=== PATIENT | female | born 1965 | race Caucasian/White ===

== ENCOUNTER 2020-08-07 11:18 | Outpatient (REF) | payer OTHER, SELFPAY | END 2020-08-07 11:19 | disposition home or self-care (01) | LOC: HO.LAB 11:18 | PROVIDERS: PCP Internal Medicine Geriatric Medicine; Visit Provider Internal Medicine | DX: Z20.828 Contact with and (suspected) exposure to other viral communicable diseases (principal) | CPT/HCPCS: 87635 ==

== ENCOUNTER 2020-10-18 14:31 | Outpatient (REF) | payer OTHER, MEDICAID, SELFPAY ==
--- NOTE | 2020-10-18 14:36 | MM_ITS ---
EXAMINATION: MM SCREENING DIGITAL BREAST TOMOSYNTHESIS, BILATERAL CLINICAL INFORMATION: Screening. Asymptomatic. The lifetime risk of breast cancer based on the Tyrer-Cuzick Model is 7%. COMPARISON: Mammography: 08/20/2019, 08/03/2018, 01/28/2018, 07/24/2017 TECHNIQUE: Digital mammography is performed in craniocaudal and mediolateral oblique views along with computer-aided detection (CAD). Digital breast tomosynthesis is performed in implant-displaced craniocaudal and implant-displaced mediolateral oblique views along with computer-aided detection (CAD). Synthesized 2D images are generated from the tomosynthesis. FINDINGS: The breasts are heterogeneously dense, which may obscure small masses (ACR BI-RADS breast composition Category c). There are bilateral implants. The implant contours are smooth. There are scattered calcifications predominantly outer breasts, slightly greater on left, similar to prior exams. No significant change calcifications. Again, there is fibrocystic parenchymal pattern with interval regression of oval masses anterior upper outer right breast since 2018. The oval retroareolar asymmetry on the left is stable. There is no interval new dominant mass or architectural abnormality. No significant changes. MM/MM tomosynthesis screen imp BI IMPRESSION: 1. Fibrocystic changes, decreased on right and stable on left. 2. Calcifications similar to prior studies. 3. No significant changes. ASSESSMENT: BI-RADS 2: Benign RECOMMENDATION: Routine annual mammography screening. This patient's information was entered into a reminder system with a target due date for their next mammogram.
== END 2020-10-18 14:32 | disposition home or self-care (01) ==
LOC: HO.MAMMO 14:31
PROVIDERS: PCP Internal Medicine Geriatric Medicine; Visit Provider Internal Medicine Geriatric Medicine
DX: Z12.31 Encounter for screening mammogram for malignant neoplasm of breast (principal)
CPT/HCPCS: 77063; 77067

== ENCOUNTER 2020-12-15 11:24 | Outpatient (REF) | payer OTHER, SELFPAY | END 2020-12-15 11:25 | disposition home or self-care (01) | LOC: HO.LAB 11:24 | PROVIDERS: Visit Provider Internal Medicine | DX: Z20.822 Contact with and (suspected) exposure to COVID-19 (principal) | CPT/HCPCS: 36415; C9803; U0003; U0005 ==

== ENCOUNTER 2021-06-16 10:11 | Emergency (ER) | payer OTHER, SELFPAY ==
--- NOTE | ~2021-06-16 | CT_ITS ---
EXAMINATION: CT HEAD WITHOUT CONTRAST CLINICAL INFORMATION: Dizziness COMPARISON: None TECHNIQUE: Contiguous axial imaging was performed from the skull base to vertex without intravenous administration of contrast. This CT examination was performed using dose optimization techniques as appropriate, variously including the following: *Automated exposure control *Adjustment of mA and/or kV according to patient size (this includes techniques or standardized protocols for targeted exams where dose is matched to indication/reason for exam; i.e. extremities or head) *Use of iterative reconstruction technique DLP: 631 mGy-cm FINDINGS: There is no evidence of acute intracranial hemorrhage or territorial infarction. No abnormal mass effect or midline shift is seen. Ovalle to white matter differentiation is well preserved. No extra-axial fluid collections are identified. The ventricles are normal in size. There is no abnormal attenuation within the brain parenchyma. The osseous structures and soft tissues are normal. The mastoid air cells and visualized portions of the paranasal sinuses are well aerated. CT/CT head/brain wo con IMPRESSION: No acute intracranial pathology.
[2021-06-16 10:19] VITALS: BP 137/75; PULSE 64; RESP 16; TEMP 36.7; O2SAT 98; BMI 28.3
--- NOTE | 2021-06-16 11:02 | ED_ITS ---
HPI - General Adult General Chief complaint: Dizziness Stated complaint: dizziness Time Seen by Provider: 06/16/21 11:02 Source: patient Mode of arrival: ambulatory Limitations: language barrier History of Present Illness HPI narrative: 56-year-old female with no significant medical history presents for 2 weeks of positional vertigo. Patient states when she flips over in bed, the room is spinning. Two weeks ago patient had a upper respiratory infection with a little cough some right ear pain and no sore throat. The upper respiratory infection went away but she has had worsening dizziness when she turns her head. She currently has a little bit of pain in her right ear, no fevers, no cough, no runny nose. No neck pain, no nausea or vomiting. This has never happened to her before. She denies chest pain, headache, neck pain, gait disturbance, blurry vision. Onset (ago): week(s) (2) Pain Consistency: intermittent Associated symptoms: denies other symptoms Treatments prior to arrival: none Related Data Previous Rx's Medication Instructions Recorded cefdinir 300 mg capsule 300 mg PO BID 7 Days #14 cap 06/16/21 meclizine 25 mg tablet 25 mg PO TID PRN #30 tab 06/16/21 Allergies Allergy/AdvReac Type Severity Reaction Status Date / Time Penicillins [PENICILLINS] Allergy Intermediate RASH Verified 06/16/21 10:19 penicillin V Allergy Unknown rash Verified 06/16/21 10:19 Dust Allergy Unknown rash Uncoded 11/27/18 00:00 Dust Mite Mixed Allergen Ext Allergy Unknown Unknown Uncoded 06/16/21 10:19 Review of Systems Constitutional: Constitutional: Denies fatigue, Denies fever(s), Denies headache(s), Denies malaise and Denies weakness Eyes: Eyes: Denies blurry vision, Denies change in vision and Denies diplopia ENT: Reports vertigo, Reports otalgia, Denies headache(s), Denies nasal congestion, Denies nasal discharge, Denies neck pain, Denies disequilibrium, Denies post nasal drip, Denies tinnitus, Denies sinus pain and Denies sore throat Cardiovascular: Cardiovascular: Denies chest pain, Denies syncope, Denies leg edema and Denies dyspnea Respiratory: Respiratory: Denies chest congestion, Denies cough and Denies dyspnea Gastrointestinal: Gastrointestinal: Denies abdominal pain, Denies coffee ground emesis, Denies constipation, Denies diarrhea, Denies nausea and Denies vomiting Genitourinary: Genitourinary: Reports no additional female genitourinary complaints Comments: Postmenopausal Musculoskeletal: Musculoskeletal: Denies abnormal gait, Denies back pain, Denies neck pain, Denies numbness and Denies tingling Integumentary/Breasts: Skin/Breast: Denies erythema and Denies rash Neurologic: Denies Abnormal speech present, Denies abnormal gait, Denies confusion, Reports vertigo, Denies syncope, Denies headache(s), Denies focal weakness, Denies numbness, Denies radicular pain, Denies Sensory deficit (Neuro), Denies tingling, Denies disequilibrium and Denies weakness Psychiatric: Psychiatric: Denies confusion Endocrine: Endocrine: Denies fatigue PMFSH Past Medical History Surgical History Hx of abdominoplasty Hx of breast augmentation Hx of section Hx of colonoscopy (12/01/18) Hx of endoscopy (~12/01/18) Family History Family History (Updated 08/08/20 @ 10:06 by ANATOLY Erickson) Father HTN (hypertension) Mother No problems noted. Brother No problems noted. Social History Social History Alcohol intake: never Patient Tobacco Use Status: Never used Tobacco Use of substances other than those prescribed or required for medical reasons: No Advance Directives: Yes Advance Directives Information Provided: Yes Advance Directives on File: No Patient : No Physical Exam Vital Signs: Vital Signs: Last Vital Signs Temp 97.6 F 06/16/21 13:08 Pulse 51 06/16/21 13:08 Resp 16 06/16/21 13:08 BP 136/73 06/16/21 13:08 Pulse Ox 98 06/16/21 11:55 Body Mass Index 28.3 Const: General: comfortable, no acute distress, well developed, alert, awake and well groomed; No confusion Nutritional Appearance: well nourished Orientation/consciousness: patient oriented x3 and No confusion Limitations: language barrier HENMT: Head: Yes normal to inspection, Yes normocephalic and Yes atraumatic Ears: hearing grossly normal bilaterally, TM normal on the left and TM abnormal wth effusion serous on the right and with fluid behind the TM on the right; Negative for not bulging, not erythematous and not perforated General nose exam: Normal external nose present Face and sinus: Yes normal facial exam and Yes sinuses nontender Mouth: Normal oral and palatal mucosa present Throat: Yes posterior oropharynx normal and Yes uvula midline Eyes: Pupils: Equal, round and reactive pupils present EOM: EOMs intact bilaterally and No Nystagmus present Neck: Neck: Yes normal visual inspection, Yes full ROM, Yes trachea midline and Yes supple Resp: Effort & Inspection: normal respiratory effort and able to speak in complete sentences Auscultation: clear to auscultation bilaterally, no crackles, no rales, no rhonchi and no wheezes Cardio: Rate: regular rate Rhythm: regular rhythm Heart sounds: S1 normal heart sound present and S2 normal heart sound present GI: Inspection: Yes normal to inspection Palpation (GI): Soft to palpation, not firm, nontender, no guarding and not rigid Skin: General skin exam: no rashes or lesions noted Neuro: Other: Sudden turning of her head her sitting up in bed elicit vertigo General: patient oriented x3, gait normal, tone normal, moves all extremities and No confusion Cranial nerves: Yes CN's II-XII intact bilaterally, Yes Facial sensation intact/muscles of mastication intact, Yes Equal, round and reactive pupils present, Yes Normal accommodation reflex present, Yes Bilaterally intact EOM present, Yes Normal facial strength present, Yes Ability to bilaterally rotate head present, Yes Ability to bilaterally elevate shoulders present and No Nystagmus present Cognition (Neuro): normal cognition Speech: No Abnormal speech present Gait exam (Neuro): Normal gait present and not ataxic Motor exam (neuro): 5/5 motor strength present throughout and Pronator motor function not present Sensory Exam: No Sensory deficit (Neuro) Deep tendon reflexes (DTR's): Right brachioradialis reflex intensity grade: 1+, Left brachioradialis reflex intensity grade: 1+, Right patellar reflex intensity grade: 1+ and Left patellar reflex intensity grade: 1+ Coordination: [id number] test normal, [id number]-[id number] test normal, tandem gait normal and does not sway with eyes open Romberg Test: Negative Pupils: Normal pupillary reactivity/response: bilateral Extrem: General: Yes normal to inspection and Yes full ROM Psych: Appearance: well kempt Mental Status: mental status grossly normal Speech and movement: Normal speech and movement present Affect: normal affect Attitude: cooperative Course Course Course Narrative: 56-year-old female with 2 weeks of dizziness that started when she had an upper respiratory infection, with some mild right ear pain pre sently. Patient feels the room is spinning when she sits up in bed when she turns her head. The symptoms are intermittent and are positional. No fevers, no neck pain, no gait disturbance, no red flag symptoms Patient has a benign neurological exam, with no nystagmus. Can elicit symptoms of vertigo when patient turns her head. Right TM has effusion, no redness or bulging. Will get head CT, give meclizine and re-evaluate. Head CT shows no acute intracranial abnormality. Patient is feeling better after meclizine, her dizziness is much better. Will treat effusion in patient's ear with antibiotics as this looks like it may become a purulent effusion. Advised patient to call her primary care provider for follow-up appointment in the next week, advised patient that she should return to emergency room if she got headache, visual changes, neck pain, gait disturbance, or vomiting. Medical Decision Making ECG Data Interpretation: Sinus at a rate of 52, incomplete right bundle branch, no ST elevations or depressions, W[place] 174, QRS 104, QTC 412, normal axis. Discharge Plan Discharge Clinical Impression: Benign paroxysmal positional vertigo Qualifiers: Laterality: right Qualified Code(s): H81.11 - Benign paroxysmal vertigo, right ear Patient Disposition: Home, Self-Care Instructions: Benign Paroxysmal Positional Vertigo (ED) Additional Instructions: Please get the prescriptions I sent to your pharmacy, 1 is an antibiotic, 1 is for dizziness. Please take these as prescribed. Please call your primary care provider for follow-up appointment. Please return to the emergency room if your dizziness gets much worse, you have vomiting, headaches, neck pain, visual changes, changes in the way you walk, or any other new or concerning symptoms. Obtenga las recetas que envi? a jain farmacia, 1 es un antibi?alexa, 1 es para mareos. T?melos seg?n lo prescrito. Llame a jain proveedor de atenci?n primaria para trish charlette de seguimiento. Regrese a la joanna de emergencias si jain mareo empeora mucho, tiene v?mitos, justin de duc, dolor de wilmer, cambios visuales, cambios en la forma de caminar o cualquier otro s?ntoma nuevo o preocupante. Prescriptions: New cefdinir 300 mg capsule 300 mg PO BID 7 Days Qty: 14 RF: 0 meclizine 25 mg tablet 25 mg PO TID PRN (Reason: dizziness) Qty: 30 RF: 0 Print Language: Upper Sorbian
[2021-06-16] MEDS: Meclizine HCl 25 MG TABLET 50 MG PO (11:52)
[2021-06-16 11:55] VITALS: BP 136/72; PULSE 54; RESP 16; O2SAT 98
--- NOTE | 2021-06-16 12:50 | ECG_ITS ---
Test Reason : dizzy Blood Pressure : / mmHG Vent. Rate : 052 BPM Atrial Rate : 052 BPM P-R Int : 174 ms QRS Dur : 104 ms QT Int : 444 ms P-R-T Axes : 064 -29 048 degrees QTc Int : 412 ms Sinus bradycardia Incomplete right bundle branch block Nonspecific T wave abnormality Abnormal ECG No previous ECGs available Referred By: Migdalia Mendenhall Electronically Signed By:NATALIE VALVERDE
[2021-06-16 13:08] VITALS: BP 136/73; PULSE 51; RESP 16; TEMP 36.4
== END 2021-06-16 14:26 | disposition home or self-care (01) ==
PROVIDERS: Emergency Provider Emergency Medicine; PCP Internal Medicine Geriatric Medicine
DX: H81.11 Benign paroxysmal vertigo, right ear (principal)
CPT/HCPCS: 70450; 93005; 99284

== ENCOUNTER 2021-07-07 12:02 | Emergency (ER) | payer OTHER, SELFPAY ==
[2021-07-07 12:17] VITALS: BP 133/77; PULSE 70; RESP 18; O2SAT 99; BMI 25.7
[2021-07-07] MEDS: levoFLOXacin 500 MG TABLET PO (13:10)
[2021-07-07] MEDS: Meclizine HCl 25 MG TABLET PO (13:10)
--- NOTE | 2021-07-07 13:32 | ED_ITS ---
HPI - Ear Problem General Chief complaint: Ear Problems Stated complaint: EAR ISSUE DIZZY Time Seen by Provider: 07/07/21 12:48 Source: patient Mode of arrival: ambulatory History of Present Illness HPI Narrative: 56-year-old female presenting to the ED complaining of right ear blockage and intermittent positional dizziness described as feeling off balance x a few weeks. Admits was seen and treated in the ED for similar symptoms on 06/16, had labs, CT that were unremarkable. Reports overall feels improved from prior visit however symptoms persistent. Reports mild headache. Denies vision change/loss, CP/SOB, weakness, numbness/tingling, abdominal pain, nausea/vomiting, drainage from the ear. Reports finishing previously prescribed antibiotics. Was unable to follow-up with ENT Patient denies dizziness or headache at present. MD Complaint: decreased hearing Related Data Previous Rx's Medication Instructions Recorded cefdinir 300 mg capsule 300 mg PO BID 7 Days #14 cap 06/16/21 meclizine 25 mg tablet 25 mg PO TID PRN #30 tab 06/16/21 levofloxacin 500 mg tablet 500 mg PO Q24H #6 tab 07/07/21 meclizine 25 mg tablet 25 mg PO TID PRN #14 tab 07/07/21 Allergies Allergy/AdvReac Type Severity Reaction Status Date / Time Penicillins [PENICILLINS] Allergy Intermediate RASH Verified 06/16/21 10:19 penicillin V Allergy Unknown rash Verified 06/16/21 10:19 Dust Allergy Unknown rash Uncoded 11/27/18 00:00 Dust Mite Mixed Allergen Ext Allergy Unknown Unknown Uncoded 06/16/21 10:19 Review of Systems Review of Systems: Constitutional: No Fever, No Night Sweats, No Fatigue, No Malaise ENT/Mouth: +Hearing loss, + Ear Pain, No Nasal Congestion, No Hoarseness, No sore throat, No Rhinorrhea, No Swallowing Difficulty Eyes: No Eye Pain, No Swelling, No Redness, No Vision Changes Cardiovascular: No Chest Pain, No SOB, No Edema, No Palpitations Respiratory: No Cough, No Sputum, No Wheezing, No Smoke Exposure, No Dyspnea Gastrointestinal: No Nausea, No Vomiting, No Diarrhea, No Constipation, No Abdominal pain Genitourinary: No Dysuria, No Urinary Frequency, No Hematuria, No Flank Pain Musculoskeletal: No joint pain, No Myalgias, No Joint Swelling Skin: No Skin Lesions, No rash Neuro: No Weakness, No Numbness, No Paresthesias, No Loss of Consciousness, + Dizziness, + Headache Yes all other systems are reviewed and are negative Neurologic: Denies Abnormal speech present [facility] Past Medical History Attestation statement: The following information was validated with the patient. Surgical History Hx of abdominoplasty Hx of breast augmentation Hx of section Hx of colonoscopy (12/01/18) Hx of endoscopy (~12/01/18) Family History Family History (Updated 08/08/20 @ 10:06 by Tracey Angela [facility]) Father HTN (hypertension) Mother No problems noted. Brother No problems noted. Social History Social History Alcohol intake: never Patient Tobacco Use Status: Never used Tobacco Advance Directives: Yes Advance Directives Information Provided: Yes Advance Directives on File: No Patient : No Physical Exam Vital Signs: Vital Signs: Last Vital Signs Pulse 70 07/07/21 12:17 Resp 18 07/07/21 12:17 BP 133/77 07/07/21 12:17 Pulse Ox 99 07/07/21 12:17 Body Mass Index 25.7 Const: General: cooperative, healthy appearing and no acute distress Orientation/consciousness: patient oriented x3 Limitations: no limitations HENMT: Head: Yes normal to inspection Ears: hearing grossly normal bilaterally, external ears normal, mastoids normal and TM abnormal wth effusion and with fluid behind the TM on the right; Negative for not bulging, not erythematous and not perforated General nose exam: Normal external nose present Face and sinus: Yes normal facial exam Mouth: Normal oral and palatal mucosa present Throat: Yes posterior oropharynx normal, Yes tonsils normal, Yes uvula midline and No peritonsillar mass Eyes: General: appearance normal, both eyes and all related structures EOM: EOMs intact bilaterally and Nystagmus present Neck: Neck: Yes normal visual inspection, Yes no lymphadenopathy and Yes no meningeal signs Resp: Effort & Inspection: normal respiratory effort and no respiratory distress Cardio: Rate: regular rate Heart sounds: S1 normal heart sound present and S2 normal heart sound present GI: Inspection: Yes normal to inspection : General: Yes no CVA tenderness Back/Spine/Pelvis: Back: no CVA tenderness Skin: Rashes: no rashes Wounds: no wounds Neuro: General: patient oriented x3, gait normal, tone normal, moves all extremities, no meningeal signs, no focal motor deficits and CN's II-XI intact bilaterally Cranial nerves: Yes CN's II-XII intact bilaterally, Yes Bilaterally intact EOM present and Yes Nystagmus present horizontal fast component to the right (Fatigable) Cognition (Neuro): normal cognition Spe ech: No Abnormal speech present Gait exam (Neuro): Normal gait present Motor exam (neuro): 5/5 motor strength present throughout Coordination: [id number] test normal Romberg Test: Negative Extrem: General: Yes normal to inspection MDM - Ear MDM Narrative Medical decision making narrative: 56-year-old female presenting to the ED co mplaining of right ear blockage and intermittent positional dizziness described as feeling off balance x a few weeks. On exam VSS, NAD/well-appearing right- sided horizontal fatigable nystagmus noted, no focal neuro deficits, ambulating with steady gait, right middle ear effusion noted. Likely BPPV/effusion causing symptoms. Head CT reviewed from 06/16/21. Low concern for CVA or central causes of vertigo Will give patient Levaquin an additional meclizine in the ED and referral to ENT, discussed worrisome signs and symptoms and strict return precautions Medical Records Attestation: I reviewed the patient's medical records. Lab Data Attestation: I reviewed the patient's lab results. Discharge Plan Discharge Clinical Impression: Chronic middle ear effusion Qualifiers: Laterality: right Qualified Code(s): H65.491 - Other chronic nonsuppurative otitis media, right ear Benign paroxysmal positional vertigo Qualifiers: Laterality: right Qualified Code(s): H81.11 - Benign paroxysmal vertigo, right ear Patient Disposition: Home, Self-Care Instructions: Benign Paroxysmal Positional Vertigo (ED), Serous Otitis Media (ED) Additional Instructions: you Have an inner ear effusion, Levaquin as an antibiotic, please take as prescribed. In addition meclizine will help with dizziness. Please follow-up with ear nose throat specialist. If her symptoms persist or worsen, your dizziness becomes more persistent, happens more constantly/not with position changes please return to the ED Tiene un derrame en el o?do interno, Levaquin giacomo antibi?alexa, t?rudd seg?n lo prescrito. Adem?s, la meclizina ayudar? con los mareos. [place] un seguimiento con un especialista en o?do, nariz y garganta. Si yenni s?ntomas persisten o empeoran, jain mareo se vuelve m?s persistente, ocurre m?s constantemente / no con cambios de posici?n, por favor regrese al servicio de urgencias. Prescriptions: New levofloxacin 500 mg tablet 500 mg PO Q24H Qty: 6 RF: 0 meclizine 25 mg tablet 25 mg PO TID PRN (Reason: dizziness) Qty: 14 RF: 0 No Action cefdinir 300 mg capsule 300 mg PO BID 7 Days Qty: 14 RF: 0 meclizine 25 mg tablet 25 mg PO TID PRN (Reason: dizziness) Qty: 30 RF: 0 Referrals: Ysabel hKan MD [Physician] - 2 days Jaden Syed MD [Physician] - 2 days Wero Colby MD [Physician] - 2 days Titus Murphy MD [Physician] - 2 days Ramses Amaya [Physician] - 2 days Jcaob Landa MD [Physician] - 2 days Print Language: Kyrgyz
== END 2021-07-07 13:56 | disposition home or self-care (01) ==
PROVIDERS: Emergency Provider Emergency Medicine; PCP Internal Medicine Geriatric Medicine
DX: H65.491 Other chronic nonsuppurative otitis media, right ear (principal); H81.11 Benign paroxysmal vertigo, right ear; Z79.899 Other long term (current) drug therapy
CPT/HCPCS: 99283

== ENCOUNTER → 2021-07-19 09:57 | Outpatient (BNVA) | payer OTHER, SELFPAY | PROVIDERS: Referring Provider Internal Medicine Geriatric Medicine; Visit Provider Nurse Practitioner ==

== ENCOUNTER 2021-07-19 12:06 | Outpatient (REF) | payer OTHER, SELFPAY ==
[2021-07-20 12:08] LABS: H Pylori Breath Test Positive (Negative)
== END 2021-07-19 12:07 | disposition home or self-care (01) ==
LOC: HO.LNP 12:06
PROVIDERS: Visit Provider Nurse Practitioner
DX: A04.8 Other specified bacterial intestinal infections (principal); K57.90 Diverticulosis of intestine, part unspecified, without perforation or abscess without bleeding; Z98.890 Other specified postprocedural states
CPT/HCPCS: 83013

== ENCOUNTER 2021-09-12 11:16 | Outpatient (REF) | payer OTHER, SELFPAY ==
[2021-09-12 11:45] LABS: COVID-19 Test Negative (Negative)
== END 2021-09-12 11:17 | disposition home or self-care (01) ==
LOC: HO.LAB 11:16
PROVIDERS: PCP Internal Medicine Geriatric Medicine; Visit Provider Internal Medicine
DX: Z20.822 Contact with and (suspected) exposure to COVID-19 (principal)
CPT/HCPCS: 36415; 87635; C9803

== ENCOUNTER 2021-10-05 15:00 | Outpatient (RCR) | payer OTHER, SELFPAY ==
[2021-10-04 14:47] VITALS: BP 131/73; PULSE 73
== END 2021-11-06 08:37 | disposition home or self-care (01) ==
LOC: HO.PT 15:00
PROVIDERS: PCP Internal Medicine Geriatric Medicine; Visit Provider Emergency Medicine
DX: H81.11 Benign paroxysmal vertigo, right ear (principal)
CPT/HCPCS: 95992; 97112; 97161

== ENCOUNTER → 2021-11-19 13:10 | Outpatient (BNVA) | payer OTHER, SELFPAY | PROVIDERS: PCP Internal Medicine Geriatric Medicine; Referring Provider Internal Medicine Geriatric Medicine; Visit Provider Nurse Practitioner | DX: A04.8 Other specified bacterial intestinal infections (principal) | CPT/HCPCS: 99212 ==

== ENCOUNTER 2022-04-19 15:34 | Outpatient (REF) | payer OTHER, SELFPAY ==
--- NOTE | ~2022-04-19 | MM_ITS ---
EXAMINATION: MM SCREENING DIGITAL BREAST TOMOSYNTHESIS, BILATERAL CLINICAL INFORMATION: Screening. Asymptomatic. The lifetime risk of breast cancer based on the Tyrer-Cuzick Model is 8%. COMPARISON: Mammography: 10/18/2020, 08/20/2019, 08/03/2018 TECHNIQUE: Digital mammography is performed in craniocaudal and mediolateral oblique views along with computer-aided detection (CAD). Digital breast tomosynthesis is performed in implant-displaced craniocaudal and implant-displaced mediolateral oblique views along with computer-aided detection (CAD). Synthesized 2D images are generated from the tomosynthesis. FINDINGS: The breasts are heterogeneously dense, which may obscure small masses (ACR BI-RADS breast composition Category c). There are bilateral implants. The implant contours are smooth and similar to prior studies. Parenchymal pattern is similar to prior exams. Fibrocystic changes right breast have regressed substantially since 2018. Fibrocystic changes retroareolar left breast are similar to prior exams. There is no significant mass or architectural abnormality. There are scattered round calcifications with some regional distribution outer left breast. No abnormal calcifications. The skin contours are smooth. MM/MM tomosynthesis screen imp BI IMPRESSION: No mammographic evidence of malignancy. ASSESSMENT: BI-RADS 2: Benign RECOMMENDATION: Routine annual mammography screening. This patient's information was entered into a reminder system with a target due date for their next mammogram.
== END 2022-04-19 15:35 | disposition home or self-care (01) ==
LOC: HO.MAMMO 15:34
PROVIDERS: Visit Provider Internal Medicine Geriatric Medicine
DX: Z12.31 Encounter for screening mammogram for malignant neoplasm of breast (principal)
CPT/HCPCS: 77063; 77067

== ENCOUNTER 2023-02-19 05:52 | Emergency (ER) | payer OTHER, SELFPAY ==
[2023-02-19 06:21] VITALS: BP 126/82; PULSE 84; RESP 18; TEMP 37.4; O2SAT 94; BMI 24.9
[2023-02-19 06:40] LABS: IDNOW Serial# 08D9AD1C; Strep A Nucleic Acid Negative (Negative)
[2023-02-19 06:40] LABS: COVID-19 Test Positive (Negative); IDNOW Serial# BCCEAD1C
[2023-02-19 06:50] LABS: IDNOW Serial# 9DB6401D; Influenza A Negative (Negative); Influenza B2 Negative (Negative)
--- NOTE | 2023-02-19 07:42 | ED_ITS ---
HPI - General Adult General Chief complaint: General Medical Stated complaint: nose bleed, possible flu Time Seen by Provider: 02/19/23 07:30 Source: patient and telecommunications line installer Mode of arrival: ambulatory History of Present Illness HPI narrative: 57-year-old female who presents with 2 days of body aches, sore throat, in feels like she has the flu . Patient also reports transient left nostril bleed. Related Data Home Medications Medication Instructions Recorded Confirmed atorvastatin 20 mg tablet 20 mg PO DAILY 11/19/21 Previous Rx's Medication Instructions Recorded cefdinir 300 mg capsule 300 mg PO BID 7 days #14 caps 06/16/21 meclizine 25 mg tablet 25 mg PO TID PRN dizziness #30 tabs 06/16/21 levofloxacin 500 mg tablet 500 mg PO Q24H #6 tabs 07/07/21 meclizine 25 mg tablet 25 mg PO TID PRN dizziness #14 tabs 07/07/21 sennosides 8.6 mg capsule (senna) 17.2 mg PO BEDTIME constipation 30 11/19/21 days #60 caps Allergies Allergy/AdvReac Type Severity Reaction Status Date / Time Penicillins [PENICILLINS] Allergy Intermediate RASH Verified 11/19/21 13:16 penicillin V Allergy Unknown rash Verified 11/19/21 13:16 Dust Allergy Unknown rash Uncoded 11/19/21 13:16 Dust Mite Mixed Allergen Ext Allergy Unknown Unknown Uncoded 11/19/21 13:16 Review of Systems Review of Systems: Pertinent positives and negatives as stated in HPI [facility] Past Medical History Source: nursing notes reviewed Surgical History H/O colonoscopy Hx of abdominoplasty Hx of breast augmentation Hx of section Hx of endoscopy (~12/01/18) Family History Family History Father HTN (hypertension) Mother No problems noted. Brother No problems noted. Social History Social History Alcohol intake: never Patient Tobacco Use Status: Never used Tobacco Advance Directives: No Advance Directives Information Provided: No Physical Exam ED Vital Signs: Vital Signs - 24 hr 02/19/23 06:21 Temperature 99.4 F Pulse Rate 84 Respiratory Rate 18 Blood Pressure 126/82 Pulse Oximetry 94 Oxygen Delivery Method Room Air BMI result Body Mass Index 24.9 VITAL SIGNS: Reviewed. GENERAL: Well developed, well nourished, in no acute distress. HEAD: Normocephalic/atraumatic EYES: PERRLA, EOMI EARS: Ext canals without abnormality, TMs non-bulging and non-erythematous NOSE: Nares patent bilateral, hemostatic, no stigmata of bleeding at this time. OROPHARYNX: no oral lesions noted, posterior pharynx clear and non-erythematous without noted tonsillar enlargement/erythema/exudates NECK: Supple, no adenopathy LUNGS: Normal breath sounds. No adventitious sounds or accessory muscle use. SpO2<94> CARDIOVASCULAR: Regular rate and rhythm without noted murmurs ABDOMEN: Soft, non-tender, non-distended with bowel sounds. NEUROLOGIC: Alert and oriented x 4. Strength and sensation to light touch were grossly intact x 4. Medical Decision Making Medical Decision Making MDM Narrative: 57-year-old female who presents with flu-like symptoms and is noted be COVID positive. She was informed of all results and discharged home with strict instructions to remain isolated for 5 days. She was also provided with treatment for transient epistaxis not related with anticoagulation. Patient is afebrile, not hypoxic and not tachypneic. She appears hemodynamically stable and comfortable. Lab Data Please see the discussion above Labs: Lab Results 02/19/23 02/19/23 02/19/23 Range/Units 06:24 06:24 06:25 COVID-19 (THI) Positive A (Negative) COVID-19 Clin Com See Note Influenza Type A (NIKOLE) Negative (Negative) Influenza Type B (NIKOLE) Negative (Negative) Influenza A & B Note See Note S. pyogenes GrpA NIKOLE Negative (Negative) Discharge Plan Discharge Clinical Impression: Viral syndrome, Lab test positive for detection of COVID-19 virus, Epistaxis Patient Disposition: Home, Self-Care Instructions: COVID-19 (Coronavirus Disease 2019) (ED), Viral Syndrome (ED), Nosebleed (ED) Additional Instructions: 1. Reanudar todos los medicamentos caseros seg?n lo prescrito. 2. Recomendar Tylenol/ibuprofeno de venta rickey seg?n sea necesario para justin corporales, dolor de garganta, temperaturas superiores a 100.4. Aumentar la c antidad de ingesta de agua. 3. Debe aislarse beckie 5 d?as si es COVID-19 positivo y luego deber? seguir las recomendaciones de jain empleador. 4. Recomiende que use un aerosol de soluci?n salina de venta rickey para mantener jain nariz hidratada. 5. Mali un seguimiento con jain proveedor de atenci?n primaria y programe trish charlette de telesalud. Regrese a la joanna de emergencias si los s?ntomas empeoran. 1. Resume all home medications as prescribed. 2. Recommend tiqb-tkz-bigriac Tylenol/ibuprofen as needed for body aches, sore throat, temperatures greater than 100.4. Increase the amount of water intake. 3. You must isolate for 5 days is you are COVID-19 positive and then you will need to follow your employer's recommendations. 4. Recommend that you use apyt-zfv-cdmqmcj saline spray to keep your nose moisturized. 5. Follow-up with your primary care provider and arrange for a tele health appointment. Return to the ER for any worsening symptoms. Prescriptions: No Action cefdinir 300 mg capsule 300 mg PO BID 7 Days Qty: 14 0RF meclizine 25 mg tablet 25 mg PO TID PRN (Reason: dizziness) Qty: 30 0RF levofloxacin 500 mg tablet 500 mg PO Q24H Qty: 6 0RF meclizine 25 mg tablet 25 mg PO TID PRN (Reason: dizziness) Qty: 14 0RF atorvastatin 20 mg tablet 20 mg PO DAILY senna 8.6 mg capsule 17.2 mg PO BEDTIME 30 Days Qty: 60 1RF Referrals: Name,MD Juan Miguel [Primary Care Provider] - Stand Alone Forms: Work/School Release Print Language: Setswana
== END 2023-02-19 08:08 | disposition home or self-care (01) ==
PROVIDERS: Emergency Provider Student in an Organized Health Care Education/Training Program; PCP Internal Medicine Geriatric Medicine
DX: U07.1 COVID-19 (principal); R04.0 Epistaxis
CPT/HCPCS: 87502; 87635; 87651; 99282; 99283

== ENCOUNTER 2023-04-28 14:50 | Outpatient (REF) | payer OTHER, SELFPAY ==
--- NOTE | ~2023-04-28 | MM_ITS ---
EXAMINATION: MM SCREENING DIGITAL BREAST TOMOSYNTHESIS, BILATERAL CLINICAL INFORMATION: Screening. Asymptomatic. The lifetime risk of breast cancer based on the Tyrer-Cuzick Model is 11.4, 0.4%. COMPARISON: Mammography: Studies compared with prior mammograms dating back to 2018. TECHNIQUE: Digital mammography is performed in craniocaudal and mediolateral oblique views along with computer-aided detection (CAD). Digital breast tomosynthesis is performed in implant-displaced craniocaudal and implant-displaced mediolateral oblique views along with computer-aided detection (CAD). Synthesized 2D images are generated from the tomosynthesis. FINDINGS: There are scattered areas of fibroglandular density (ACR BI-RADS breast composition Category b). There are bilateral, mammographically intact, retropectoral silicone breast implants. There are no significant masses, abnormal calcifications, or other abnormalities. MM/MM tomosynthesis screen imp BI IMPRESSION: No mammographic evidence of malignancy. ASSESSMENT: BI-RADS BI-RADS 1 - Negative RECOMMENDATION: Routine annual mammography screening. 1 year F/U This patient's information was entered into a reminder system with a target due date for their next mammogram.
== END 2023-04-28 14:51 | disposition home or self-care (01) ==
LOC: HO.MAMMO 14:50
PROVIDERS: PCP Internal Medicine Geriatric Medicine; Visit Provider Internal Medicine Geriatric Medicine
DX: Z12.31 Encounter for screening mammogram for malignant neoplasm of breast (principal)
CPT/HCPCS: 77063; 77067

== ENCOUNTER → 2023-04-28 15:30 | Outpatient (BNV) | payer OTHER, SELFPAY | PROVIDERS: PCP Internal Medicine Geriatric Medicine; Visit Provider Radiology Diagnostic Radiology | DX: Z12.31 Encounter for screening mammogram for malignant neoplasm of breast (principal) | CPT/HCPCS: 77063; 77067 ==

== ENCOUNTER 2023-12-27 09:29 | Outpatient (REF) | payer OTHER, SELFPAY ==
[2023-12-27 09:53] LABS: MANUAL DIFF FLAG NO
[2023-12-27 10:18] LABS: Basophils Absolute Auto 0.1 X10*3/uL (0.0-0.2); Basophils Percent Auto 0.7 % (0-2); Eosinophils Absolute Auto 0.1 X10*3/uL (0.0-0.4); Hematocrit 41.5 % (37.0-47.0); Hemoglobin 13.7 g/dl (12.0-16.0); Imm Gran Abs Auto 0.03 X10*3/uL (0.00-0.03); Imm Gran Pct Auto 0.4 % (0.0-0.4); Lymphocytes Absolute Auto 2.7 X10*3/uL (1.2-4.9); Lymphocytes Percent Auto 39.5 % (20-40); Mean Corpuscular Hemoglobin 29.7 pg (27.0-33.0); Mean Platelet Volume 11.3 fL (9.4-12.3); Monocytes Absolute Auto 0.5 X10*3/uL (0.1-1.2); Monocytes Percent Auto 6.6 % (2-11); Neutrophils Absolute Auto 3.6 x10*3/uL (2.0-8.3); Neutrophils Percent Auto 51.8 % (45-73); Platelet Count 279 X10*3/uL (160-400); Red Blood Count 4.61 X10*6/uL (4.20-5.50); White Blood Count 6.9 X10*3/uL (4.8-10.8)
[2023-12-27 11:31] LABS: Alanine Aminotransferase 37 U/L (0-31); Albumin Level 4.6 g/dL (3.5-5.0); Alkaline Phosphatase 106 U/L (39-117); Anion Gap 10 (12-20); Aspartate Amino Transferase 22 U/L (5-31); Bilirubin Total 0.4 mg/dL (0.0-1.0); Blood Urea Nitrogen 18 mg/dL (9-16); Calcium 9.9 mg/dL (8.4-10.2); Carbon Dioxide 28 mmol/L (22-29); Chloride 107 mmol/L (96-108); Cholesterol 253 mg/dL (<200); Estimated Glomerular Filt Rate > 60; Glucose Random 109 mg/dL (60-115); HDL Cholesterol 32 mg/dL (>40); LDL Cholesterol Calculated 183 mg/dL (<100); Potassium 4.3 mmol/L (3.3-5.1); Sodium 141 mmol/L (135-145); Total Protein 7.9 g/dL (6.5-8.0); Triglycerides 191 mg/dL (<150)
== END 2023-12-27 09:30 | disposition home or self-care (01) ==
LOC: HO.LAB 09:29
PROVIDERS: PCP Internal Medicine Geriatric Medicine; Visit Provider Internal Medicine Geriatric Medicine
DX: Z00.00 Encounter for general adult medical examination without abnormal findings (principal); Z13.1 Encounter for screening for diabetes mellitus; Z13.220 Encounter for screening for lipoid disorders; Z86.19 Personal history of other infectious and parasitic diseases
CPT/HCPCS: 36415; 80053; 80061; 85025; 87338

== ENCOUNTER 2024-02-25 16:07 | Outpatient (REF) | payer OTHER, SELFPAY ==
[2024-02-27 08:48] LABS: H Pylori Breath Test Negative (Negative)
== END 2024-02-25 16:08 | disposition home or self-care (01) ==
LOC: HO.HHCLNP 16:07
PROVIDERS: Visit Provider Internal Medicine Geriatric Medicine
DX: A04.8 Other specified bacterial intestinal infections (principal)
CPT/HCPCS: 83013

== ENCOUNTER → 2025-01-17 09:00 | Outpatient (BNV) | payer OTHER, SELFPAY | PROVIDERS: PCP Internal Medicine Geriatric Medicine; Visit Provider Radiology Diagnostic Radiology | DX: M54.2 Cervicalgia (principal); V49.40XA Driver injured in collision with unspecified motor vehicles in traffic accident, initial encounter | CPT/HCPCS: 72040 ==

== ENCOUNTER 2025-01-17 20:20 | Emergency (ER) | payer OTHER, SELFPAY ==
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
[2025-01-17 20:39] VITALS: BP 132/68; PULSE 74; RESP 14; TEMP 36.5; O2SAT 96; BMI 26.7
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
--- OUTSIDE RECORDS SUMMARY | 2025-01-17 22:21 | XMS_ITS | Encounter Summary ---
Author Organization [employer] [facility] Address [address] [place] [address] Care Team Providers Care Blow Torch Burner Name Role Phone Name, Juan Miguel JUAREZ Primary Care Provider [phone] Encounter Details Date Type Department Care Team (Late Contact Info) Description 03/03/[address] [address] Name, MD Juan Miguel [address] [place] [address] [phone] Social History Tobacco Use Types Packs/Day Years Used Date Smoking Tobacco: Never Assessed Comments Unknown Sex and Gender Information Value [...] Description 01/31/2025 2:45 PM EDT Office Visit [facility] [address] [place] [address] [phone] Name, MD Juan Miguel [address] [place] [address] [phone] documented as of this encounter Procedures Procedure Name Priority Date/Time Associated Diagnosis Comments COLONOSCOPY Routine 12/01/2018 documented in this encounter Results * Colonoscopy (12/01/2018) Colonoscopy Normal Normal 12/01/2018 Светлана Jennifer Alfaro - 12/01/2018 10:28 AM EST [place] 10 [place] ( [facility] [place] Historical Provider HEALTH MAINTENANCE Final Result documented in this encounter Visit Diagnoses Not on filedocumented in this encounter Care Teams Blow Torch Burner Relationship Specialty Start Date End Date Name, MD Juan Miguel [address] [place] [phone] PCP - General Family Medicine 07/14/17 documented as of this encounter
--- OUTSIDE RECORDS SUMMARY | 2025-01-17 22:21 | XMS_ITS | Clinical Summary ---
Author Organization [facility] [employer] Address [address] [facility] [address] [place] [address] Care Team Providers Care Inspector Ball Points Name Role Phone Name, Juan Miguel JUAREZ Primary Care Provider [phone] Allergies Active Allergy Reactions Criticality Noted Date Comments Dust Mite Extract Rash Low 11/19/2021 Mite (D. Farinae) Unknown 11/19/2021 Penicillins Rash High 11/19/2021 Medications Blood Pressure Monitor kit Use once a day 1 kit 4 Active fluticasone (Flonase) 50 MCG/ACT nasal spray Administer 2 sprays into each nostril in the morning. Shake gently. Before first use, prime pump. After use, clean tip and replace cap. 16 g 2 4 Active omeprazole OTC (PriLOSEC OTC) 20 MG EC tablet Take 1 tablet (20 mg) by mouth before breakfast and before evening meal for 10 days. Do not crush, chew, or split. 20 tablet 4 Active amLODIPine (Norvasc) 2.5 MG tablet Take 1 tablet (2.5 mg) by mouth Once per day. 4 02/25/20 25 Active atorvastatin (Lipitor) 20 MG tablet Take 1 tablet (20 mg) by mouth Once per day. 30 tablet 11 4 02/25/20 25 Active Active Problems Problem Noted Date Diagnosed Date Hypertension 01/05/2024 Diverticulosis 12/22/2023 H. pylori infection 12/22/2023 Overview (12/23/2023): On endoscopy done at [facility]. Treated by GI at [facility] Irritable bowel syndrome 12/22/2023 Seasonal allergies 12/22/2023 Steatosis of liver 07/31/2018 Resolved Problems Problem Noted Date Diagnosed Date Resolved Date Epistaxis 12/22/2023 12/23/2023 Lab test positive for detect ion of COVID-19 virus 12/22/2023 12/23/2023 Middle ear infection 12/22/2023 024 Posterior rhinorrhea 12/22/2023 024 Viral syndrome 12/22/2023 12/23/2023 Abdominal pain 07/31/2018 12/23/2023 Acne 07/31/2018 12/23/2023 Encounters Date Type Department Care Team Description 01/17/2025 Orders Only [facility] External Provider, [facility] 01/17/2025 Telephone [facility] [address] [place] [address] Name, MD Juan Miguel from Last 3 Months Immunizations Name Administration Dates Next Due Hep B, adult 07/23/2018,06/23/2018 Influenza Injectable Quadriv alant Preservative Free IIV4 MDCK 09/25/2021 Influenza injectable quadriv alent IIV4 with preservative 07/30/2019,07/31/2018 Influenza injectable quadrivalent preservative f ree 07/19/2020 TD (adult), 2 Lf tetanus tox oid, preservative free, adsorbed 02/21/2018 Tdap 07/31/2018 Social History Tobacco Use Types Packs/Day Years Used Date Smoking Tobacco: Never Smokeless Tobacco: Never Tobacco Cessation:Counseling Given: Not Answered Alcohol Use Standard Drinks/Week Comments Never 0 [...] not to disclose 2021 10:32 AM EDT Last Filed Vital Signs Vital Sign Reading Time Taken Comments Blood Pressure 140/83 02/25/2024 3:18 PM EDT Pulse 70 02/25/2024 3:18 PM EDT Temperature 36.3 ??C (97.3 ??F) 02/25/2024 3:18 PM ED T Respiratory Rate 16 02/25/2024 3:18 PM EDT Oxygen Saturation 98% 02/25/2024 3:18 PM EDT Inhaled Oxygen Concentration - - Weight 74.1 kg (163 lb 6.4 oz) 02/25/2024 3:18 P M EDT Height 164 cm (5' 4.57 ) 02/25/2024 3:18 PM EDT Body Mass Index 27.55 02/25/2024 3:18 PM EDT Plan of Treatment Upcoming Encounters Date Type Department Care Team (Late st Contact Info) Description 01/31/2025 2:45 PM EDT Office Visit [facility] [address] [place] [address] Name, MD Juan Miguel [address] [place] [address] Health Maintenance Due Date Last Done Comments CT Colonography 1965 FIT DNA/Cologuard 1965 FIT 1965 FOBT 1965 Sigmoidoscopy 1965 Alcohol/Substance Use Screening 1976 Hepatitis A Vaccines (1 of 2 - Risk 2-dose series) 1983 Pneumococcal Vaccine: 50+ Years (1 of 1 - PCV) 2014 Zoster Vaccines (1 of 2) 2014 Hepatitis B Vaccines (3 of 3 - Risk 3-dose series) 12/21/2018 07/23/2018, 06/23/2018 RSV Patients and Patients Aged 60 years or older (1 - Risk 60-74 years 1-dose series) 2024 COVID-19 Vaccine ( season) 2024 10/08/2021, 02/02/2021, 01/05/2021 Influenza Vaccine (#1) 2024 , 07/19/2020, 07/30/2019, Additional history exists Depression Screening 12/22/2024 12/23/2023, 12/23/19 24 SDOH Screening 12/22/2024 12/23/2023 Tobacco Screening 02/24/2025 02/25/2024 Pap Smear 04/17/2025 04/17/2022, 04/05/2021 Mammogram 04/28/2025 04/28/2023, 07/0 10/2021, 10/18/2020, Additional history exists Cervical Cancer Screening 04/17/2027 HPV/Cotest 04/17/2027 04/17/2022, 03/20, 12/09/2019, Additional history exists DTaP/Tdap/Td Vaccines (2 - Td or Tdap) 07/31/2028 07/31/2018, 02/21/2018 Colonoscopy 12/01/2028 12/01/2018 Colorectal Cancer Screening 12/01/2028 Lipid Panel 12/26/2028 12/27/2023, 01/18, 09/18/2021, Additional history exists HIV Screening Completed 04/05/2021 Hepatitis C Screening Completed 04/05/2021 HIB Vaccines Aged Out No longer eligi ble based on patient's age to complete this topic HPV Vaccines Aged Out No longer eligi ble based on patient's age to complete this topic IPV Vaccines Aged Out No longer eligi ble based on patient's age to complete this topic Meningococcal Vaccine Aged Out No ryan maria eligible based on patient's age to complete this topic RSV under 20 months Aged Out No longe r eligible based on patient's age to complete this topic Rotavirus Vaccines Aged Out No longer eligible based on patient's age to complete this topic Procedures Procedure Name Priority Date/Time Associated Diagnosis Comments XR CERVICAL SPINE 2V Routine 01/17/2025 9:36 PM EDT LIPID PANEL, STANDARD Routine 12/27/2023 9:50 AM EST Screening for cholesterol level BI MAMMOGRAM SCREEN W JESU W IMPLANTS CAMILO Routine 04/28/2023 3:30 PM EDT THINPREP IMAGING PAP AND HPV MRNA E6/E7 WITH REFLEX TO HPV 16,18/45 Routine 04/17/2022 4:30 PM EDT ZZZ HISTORICAL HEPATITIS C AB W/REFL TO HCV RNA, QN, PCR Routine 04/05/2021 10:36 AM EDT HIV 1/2 ANTIGEN/ANTIBODY, FOURTH GENERATION W/RFL Routine 04/05/2021 10:36 AM EDT HM COLONOSCOPY Routine 12/01/2018 from Last 3 Months or Most Recently Relevant to Health Maintenance Results * XR CERVICAL SPINE 2V (01/17/2025 9:36 PM EDT) Anatomical Region Laterality Modality Abdomen Radiographic Rebeka ging 01/17/2025 9:36 PM EDT Narrative 01/17/2025 9:38 PM EDT ? [facility] ?[address] ?[place] [address] ?XRay Report ? Signed ? Patient: Rohan Simmons,Lory ?MR#: MM ?? [id number] ? : 1965 ?Acct:[id number] ? Age/Sex: 59 / F ?ADM Date: 03/31/25 ? Loc: HO.ED ? Attending Dr: ? Ordering Physician: Generic ED Physician ?? Date of Service: 01/17/25 ?? Procedure(s): XR cervical spine 2V ?? Accession Number(s): [id number] ? cc: Generic ED Physician; Name,Juan Miguel [...] by Lucio Villalta MD in OV> ? 01/17/257 ? DD/ 35 ? TD/TT: 01/17/252135 ? Corporate Development Analyst: ? Procedure Note Gissel, Image - 01/17/2025 [place] [address] XRay Report Signed Patient: Migue Denise#: [id number] : 1965Acct:[id number] Age/Sex: 59 / FADM Date: 01/17/25 Loc: HO.ED Attending Dr: Ordering Physician: Generic ED Physician Date of Service: 01/17/25 Procedure(s): XR cervical spine 2V Accession Number(s): [id number] cc: Generic ED Physician; Name,Juan Miguel JUAREZ [...] in OV> 01/17/252136 DD/ 35 TD/TT: 01/17/252135 Corporate Development Analyst: [facility] External Provider IMG XR PROCEDURES Final Result * (ABNORMAL) Lipid Panel, Standard (12/27/2023 9:50 AM EST) Triglycerides 191(H) <150 mg/dL [facility] Comment:Desirable Triglyceri de: less than 150 mg/dLBorderline High Triglyceride 150-199 mg/dLHigh Triglyceride: 200-499 mg/dLVery High Triglyceride: greater than or equal to 5OO mg/dL Cholesterol 253(H) <200 mg/dL [facility] Comment:Desirable Cholestero l: less than 200 mg/dLBorderline High Cholesterol: 200-239 mg/dLHigh Cholesterol: greater than 239 mg/dL LDL Cholesterol Calculated 183(H) <100 mg/dL [facility] Comment:Desirable LDL: less than 100 mg/dLNear Optimal/Above Optimal LDL: 110- 129 mg/dLBorderline High LDL: 130-159 mg/dLHigh LDL: 160-189 mg/dLVery High LDL: greater than or equal to 190 mg/dL HDL Cholesterol 32(L) >40 mg/dL [facility] Comment:Desirable HDL: great er than 40 mg/dL Note: This HDL assay may give artificially low results in patients with liver disease. Blood Venous blood specimen / Unknown 12/27/2023 9:50 AM EST 12/27/2023 9:52 AM EST Juan Miguel Burr MD LAB BLOOD ORDERABLES Final Resul t [facility] [address] [place] [address] [phone] * BI Mammogram Screen w/ Jesu w/ Implants Camilo (04/28/2023 3:30 PM EDT) Anatomical Region Laterality Modality Mammography 04/28/2023 3:30 PM EDT Narrative 05/17/2023 7:45 PM EDT ? [facility] ? [address] ?[place], [place] [address] ? Mammography Report ? Signed ? Patient: Lory Denise ?MR#: MM ?? [id number] ? : 1965 ?Acct:[id number] ? Age/Sex: 57 / F ?ADM Date: 04/28/23 ? Loc: HO.MAMMO ? Attending Dr: Juan Miguel Name MD ? Ordering Physician: Name,Juan Miguel MD ?Results: ? Date of Service: 04/28/23 ?Follow Up: ? Procedure(s): MM tomosynthesis screen imp BI ?? Accession Number(s): [id number] ? cc: Name,Juan Miguel MD ? EXAMINATION: ?? MM SCREENING DIGITAL BREAST TOMOSYNTHESIS, BILATERAL ? CLINICAL INFORMATION: ? Screening. Asymptomatic. ? The lifetime risk of breast cancer based on the Tyrer-Cuzick Model is ?? 11.4, 0.4%. ? COMPARISON: ?? Mammography: Studies compared with prior mammograms dating back to ?? 2018. ? TECHNIQUE: ?? Digital mammography is performed in craniocaudal and mediolateral ?? oblique views along with computer-aided detection (CAD). Digital breast ?? tomosynthesis is performed in implant-displaced craniocaudal and ?? implant-displaced mediolateral oblique views along with computer-aided ?? detection (CAD). Synthesized 2D images are generated from the ?? tomosynthesis. ? FINDINGS: ?? There are scattered areas of fibroglandular density (ACR BI-RADS breast ?? composition Category b). ? There are bilateral, mammographically intact, retropectoral silicone ?? breast implants. ?? There are no significant masses, abnormal calcifications, or other ?? abnormalities. ? MM/MM tomosynthesis screen imp BI ?? IMPRESSION: ?? No mammographic evidence of malignancy. ? ASSESSMENT: ? BI-RADS BI-RADS 1 - Negative ? RECOMMENDATION: ?? Routine annual mammography screening. ? 1 year F/U ? This patient's information was entered into a reminder system with a ?? target due date for their next mammogram. ? Dictated By: ?Noris Orellana MD ? Signed By: ?<Electronically signed by Noris Orellana MD in OV> ? 07/29/23 1942 ? DD/ 1530 ? TD/TT: ? Corporate Development Analyst: ? Procedure Note Lolater, Image - 05/17/2023 [place] [facility] [address] [place] [address] Mammography Report Signed Patient: Migue Denise#: [id number] : 1965Acct:[id number] Age/Sex: 57 / FADM Date: 04/28/23 Loc: [facility] Attending Dr: Juan Miguel Burr MD Ordering Physician: Juan Miguel Burrults: Date of Service: 04/28/23Follow Up: Procedure(s): MM tomosynthesis screen imp BI Accession Number(s): [id number] cc: Juan Miguel Burr MD EXAMINATION: MM SCREENING DIGITAL BREAST TOMOSYNTHESIS, BILATERAL CLINICAL INFORMATION: Screening. Asymptomatic. The lifetime risk of breast cancer based on the Tyrer-Cuzick Model is 11.4, 0.4%. COMPARISON: Mammography: Studies compared with prior mammograms dating back to 2018. TECHNIQUE: Digital mammography is performed in craniocaudal and mediolateral oblique views along with computer-aided detection (CAD). Digital breast tomosynthesis is performed in implant-displaced craniocaudal and implant-displaced mediolateral oblique views along with computer-aided detection (CAD). Synthesized 2D images are generated from the tomosynthesis. FINDINGS: There are scattered areas of fibroglandular density (ACR BI-RADS breast composition Category b). There are bilateral, mammographically intact, retropectoral silicone breast implants. There are no significant masses, abnormal calcifications, or other abnormalities. MM/MM tomosynthesis screen imp BI IMPRESSION: No mammographic evidence of malignancy. ASSESSMENT: BI-RADS BI-RADS 1 - Negative RECOMMENDATION: Routine annual mammography screening. 1 year F/U This patient's information was entered into a reminder system with a target due date for their next mammogram. Dictated By: Noris Orellana MD Signed By: <Electronically signed by Noris Orellana MD in OV> 05/17/23 1942 DD/ 1530 TD/TT: Corporate Development Analyst: [facility] Name IM BI PROCEDURES Final Result * THINPREP TIS PAP AND HPV mRNA E6/E7 WITH REFLEX TO HPV 16,18/45 (04/17/2022 4:30 PM EDT) Clinical Information: None given [facility] COMMENT SEE COMMENT [facility] Comment: EXPLANATORY NOTE: ? The Pap is a screening test for cervical cancer. It is ?? not a diagnostic test and is subject to false negative ?? and false positive results. It is most reliable when a ?? satisfactory sample, regularly obtained, is submitted ?? with relevant clinical findings and history, and when ?? the Pap result is evaluated along with historic and ?? current clinical information. ?? COMMENT: This Pap test has been evaluated with computer assisted technology. [employer] SYSTEM [employer] t: SEE COMMENT [facility] Comment: DMM, CT(ASCP) CT screening location: [address] ??[address] HPV nRNA E6/E7 Not Detected Not Detected [facility] Comment: Methodology: Wet Process Miller Head Assistant-Mediated Amplification This assay detects E6/E7 viral messenger RNA (mRNA) from 14 high-risk HPV types (16,18,31,33,35,39,45,51,52,56,58,59,66,68). ? Cervical sources are required for HPV testing. If a vaginal source from a patient who has had a total hysterectomy with removal of cervix was ?? submitted, please contact the testing laboratory for alternative testing options. ?? For additional information, please refer to http://[facility] [place].Kopi/faq/YGU334z0 (This link if provided for information/ educational purposes only.) Interpretation/ Result: Negative for intraepithelial lesion or malignancy. [facility] LMP: NONE GIVEN [facility] Prev. BX: NONE GIVEN [facility] Prev. PAP: NIL/NEG PRECEDED BY NIL HPV (P) [facility] SOURCE: None given [facility] Statement Of Adequacy: SEE COMMENT [facility] Comment: Satisfactory for evaluation. Endocervical/transformation zone component present. Age and/or menstrual status not provided 04/17/2022 4:30 PM EDT Manisha Keen [facility] LAB PATHOLOGY ORDERABLES Final Result [facility] [address] * HEPATITIS C AB W/REFL TO HCV RNA, QN, PCR (04/05/2021 10:36 AM EDT) HEPATITIS C ANTIBODY NON-REACT CHRISTEL NON-REACT CHRISTEL [facility] INDEX 0.01 <1.00 [facility] Comment: ?? HCV antibody was non-reactive. There is no laboratory ?? evidence of HCV infection. ?? In most cases, no further action is required. However, if recent HCV exposure is suspected, a test for HCV RNA (test code 76662) is suggested. ?? For additional information please refer to http://[facility] [place].Kopi/faq/WHZ72g8 (This link is being provided for informational/ educational purposes only.) ?? 04/05/2021 10:3 6 AM EDT Manisha PAYAN HISTORICAL/NON ORDERABLE LABS Final Result Performing Organization Address [facility] Co de Phone Number [facility] [address] [place] [address], * HIV 1/2 ANTIGEN/ANTIBODY,FOURTH GENERATION W/RFL (04/05/2021 10:36 AM EDT) HIV-1/2 ANTIGEN AND ANTIBODIES, 4TH GENERATION W/ REFLEX NON-REACT CHRISTEL NON-REACT CHRISTEL [facility] Comment: HIV-1 antigen and HIV-1/HIV-2 antibodies were not detected. There is no laboratory evidence of HIV infection. ?? PLEASE NOTE: This information has been disclosed to you from records whose confidentiality may be protected by state law. ??If your state requires such protection, then the state law prohibits you from making any further disclosure of the information without the specific written consent of the person to whom it pertains, or as otherwise permitted by law. A general authorization for the release of medical or other information is NOT sufficient for this purpose. ? For additional information please refer to http://education.Kopi/faq/EAG843 (This link is being provided for informational/ educational purposes only.) ? The performance of this assay has not been clinically validated in patients less than 2 years old. ?? 04/05/2021 10:3 6 AM EDT Manisha PAYAN LAB BLOOD ORDERABLES Felicitas l Result Performing Organization Address [facility] Co de Phone Number [facility] [address] [place] [address], [place] * Colonoscopy (12/01/2018) Colonoscopy Normal Normal 12/01/2018 Narrative Jennifer Alfaro - 12/01/2018 10:28 AM EST Recommended 10 year follow up ( [facility] Provider HEALTH MAINTENANCE Final Result from Last 3 Months or Most Recently Relevant to Health Maintenance Insurance (Home) (Work) [address] [facility] * Guarantor: Lory Denise Account Type Relation to Patient Date of Phone Billing Address Personal/Family Self [address] Care Teams Inspector Ball Points Relationship Specialty Start Date End Date Name, MD Juan Miguel [address] [place] [address] PCP - General Family Medicine 07/14/17
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
[2025-01-17] MEDS: methocarbamoL 750 MG TABLET 1500 MG PO (23:37)
[2025-01-17] MEDS: Ketorolac Tromethamine 15 MG/ML VIAL IM (23:37)
[2025-01-17 23:38] VITALS: BP 132/68; PULSE 74; RESP 14; TEMP 36.5; O2SAT 96
== END 2025-01-17 23:42 | disposition home or self-care (01) ==
PROVIDERS: Emergency Provider Emergency Medicine; PCP Internal Medicine Geriatric Medicine
DX: S16.1XXA Strain of muscle, fascia and tendon at neck level, initial encounter (principal); M54.2 Cervicalgia; R11.0 Nausea; V43.02XA Car driver injured in collision with other type car in nontraffic accident, initial encounter; Y93.9 Activity, unspecified; Y92.410 Unspecified street and highway as the place of occurrence of the external cause; Y99.8 Other external cause status; Z79.899 Other long term (current) drug therapy
CPT/HCPCS: 72040; 96372; 99283; 99284; J1885

== ENCOUNTER 2025-10-10 07:55 | Outpatient (REF) | payer OTHER, SELFPAY ==
--- OUTSIDE RECORDS SUMMARY | 2025-10-10 07:59 | XMS_ITS | Clinical Summary ---
Author Organization [employer] Address [address] [facility] 7t [place] [address] Care Team Providers Care Product Trainer Name Role Phone Name, Juan Miguel JUAREZ Primary Care Provider [phone] Allergies Active Allergy Reactions Criticality Noted Date Comments Dust Mite Extract Rash Low 11/19/2021 Mite (D. Farinae) Unknown 11/19/2021 Penicillins Rash High 11/19/2021 Medications Blood Pressure Monitor kit Use once a day 1 kit 4 Active omeprazole OTC (PriLOSEC OTC) 20 MG EC tablet Take 1 tablet (20 mg) by mouth before breakfast. Do not crush, chew, or split. 30 tablet 11 5 09/27/20 26 Active fluticasone (Flonase) 50 MCG/ACT nasal spray Administer 2 sprays into each nostril in the morning. Shake gently. Before first use, prime pump. After use, clean tip and replace cap. 16 g 2 4 09/27/20 25 Discontinu ed(Therapy completed) omeprazole OTC (PriLOSEC OTC) 20 MG EC tablet Take 1 tablet (20 mg) by mouth before breakfast and before evening meal for 10 days. Do not crush, chew, or split. 20 tablet 4 09/27/20 25 Discontinu ed(Therapy completed) amLODIPine (Norvasc) 2.5 MG tablet Take 1 tablet (2.5 mg) by mouth Once per day. 4 09/27/20 25 Discontinu ed(Therapy completed) atorvastatin (Lipitor) 20 MG tablet Take 1 tablet (20 mg) by mouth Once per day. 30 tablet 11 4 09/27/20 25 Discontinu ed(Therapy completed) ketorolac (Toradol) 10 MG tablet TAKE 1 TABLET BY MOUTH EVERY 6 HOURS NEEDED FOR PAIN DO NOT EXCEED 5 DAYS 5 09/27/20 25 Discontinu ed(Therapy completed) methocarbamol (Robaxin) 750 MG tablet Take 1 tablet (750 mg) by mouth every 8 (eight) hours if needed for muscle spasms for up to 20 days. 90 tablet 5 09/27/20 25 Discontinu ed(Therapy completed) Active Problems Problem Noted Date Diagnosed Date Hypertension 01/05/2024 Diverticulosis 12/22/2023 H. pylori infection 12/22/2023 Overview (12/23/2023): On endoscopy done at [facility] 2019. Treated by GI at [facility] Irritable bowel syndrome 12/22/2023 Seasonal allergies 12/22/2023 Steatosis of liver 07/31/2018 Resolved Problems Problem Noted Date Diagnosed Date Resolved Date Epistaxis 12/22/2023 12/23/2023 Lab test positive for detect ion of COVID-19 virus 12/22/2023 12/23/2023 Middle ear infection 12/22/2023 024 Posterior rhinorrhea 12/22/2023 024 Viral syndrome 12/22/2023 12/23/2023 Abdominal pain 07/31/2018 12/23/2023 Acne 07/31/2018 12/23/2023 Encounters Date Type Department Care Team Description 09/28/2025 Telephone [facility] [address] [place] [phone] Juan Miguel Burr MD EYE EXAM REF 09/27/2025 3:15 PM EST Office Visit [facility] [address] [place] [phone] Juan Miguel Burr MD PE (physical exam), routine (Primary Dx); Screening for cholesterol level; Screening for diabetes mellitus (DM); Gastroesophageal reflux disease, unspecified whether esophagitis present; Encounter for screening for malignant neoplasm of breast, unspecified screening modality; Encounter for immunization 09/27/2025 Travel 09/26/2025 Telephone [facility] [address] [place] [address] Seth Melia BLAYNE 09/19/2025 Patient Outreach [facility] [address] [place] [address] Juan Miguel Burr MD Pre-visit Planning ([facility] screening was completed on 01/31/2025) 07/11/2025 Telephone [facility] [address] [place] [address] Juan Miguel Burr MD from Last 3 Months Immunizations Immunization Administration Dates Next Due Hep B, adult 07/23/2018,06/23/2018 Influenza Injectable Quadriv alant Preservative Free IIV4 MDCK 09/25/2021 Influenza injectable quadriv alent IIV4 with preservative 07/30/2019,07/31/2018 Influenza injectable quadrivalent preservative f ree 07/19/2020 Influenza, seasonal, injectable, preservative fr ee 09/27/2025 TD (adult), 2 Lf tetanus tox oid, preservative free, adsorbed 02/21/2018 Tdap 07/31/2018 Family History Medical History Relation Name Comments Hypertension Brother No Known Problems Father No Known Problems Mother Relation Name Status Comments Brother Father Mother Social History Tobacco Use Types Packs/Day Years Used Date Smoking Tobacco: Never Passive Smoke Exposure: Never Smokeless Tobacco: Never Tobacco Cessation:Counseling Given: Not Answered Alcohol Use Standard Drinks/Week Comments Never 0 (1 standard drink = 0.6 oz pur e alcohol) Depression Answer Date Recorded Patient Health Questionnaire-9 Score 1 09/27/2025 Patient Health Questionnaire-9 Score 1 09/27/2025 Last PHQ-9: Questionnaire Data Not on file 1 11/28/2024 Housing Stability Answer Date Recorded What is your housing situation today? I have dennis rivera 01/24/[address] you li ve. Do you have problems with any of the following? None of the above 01/24/2025 Food Insecurity Answer Date Recorded Within the past 12 months, y ou worried that your food would run out before you got money to buy more: Never True 01/24/2025 Within the past 12 months,th e food you bought just didn't last and you didn't have enough money to get more: Never True 04/2025 Transportation Answer Date Recorded In the past 12 months, has l ack of transportation kept you from medical appts, meetings, work or from getting things needed for daily living? No 01/24/2025 Utilities Answer Date Recorded In the past 12 months, has t he electric, gas, oil or water company threatened to shut off services in your home? No 01/24/2025 Depression Answer Date Recorded Patient Health Questionnaire-2 Score 0 09/27/2025 Internet Access Answer Date Recorded Internet Access Q1 Yes 01/24/2025 Internet Access Q2 Not on file 01/24/2025 Comments Unknown Sex and Gender Information Value Date Recorded Sex Assigned at Female 08/19/2022 10:32 AM EDT Legal Sex Female 10:32 AM EDT Gender Identity Female 08/19/2022 10:32 AM EDT Sexual Orientation Choose not to disclose 2021 10:32 AM EDT Last Filed Vital Signs Vital Sign Reading Time Taken Comments Blood Pressure 132/78 09/27/2025 3:16 PM EST Pulse 93 09/27/2025 3:16 PM EST Temperature 36.4 C (97.6 F) 09/27/2025 3:16 PM EST Respiratory Rate 15 09/27/2025 3:16 PM EST Oxygen Saturation 97% 09/27/2025 3:16 PM EST Inhaled Oxygen Concentration - - Weight 75 kg (165 lb 6.4 oz) 09/27/2025 3:16 PM EST Height 164 cm (5' 4.57 ) 09/27/2025 3:16 PM EST Body Mass Index 27.89 09/27/2025 3:16 PM EST Plan of Treatment Upcoming Encounters Date Type Department Care Team (Late st Contact Info) Description 10/17/2025 3:30 PM EST Immunization [facility] [address] [place] [address] 01/02/2026 3:30 PM EDT Office Visit [facility] [address] [place] [address] 13905 Name, MD Juan Miguel [address] [place] [phone] Health Maintenance Due Date Last Done Comments CT Colonography 1965 FIT DNA/Cologuard 1965 FIT 1965 FOBT 1965 Sigmoidoscopy 1965 Hepatitis A Vaccines (1 of 2 - Risk 2-dose series) 1983 Pneumococcal Vaccine: 50+ Years (1 of 1 - PCV) 2014 RSV Patients and Patients Aged 60 years or older (1 - Risk 50-74 years 1-dose series) 2014 Zoster Vaccines (1 of 2) 2014 Hepatitis B Vaccines (3 of 3 - Risk 3-dose series) 12/21/2018 07/23/2018, 06/23/2018 Mammogram 04/28/2025 04/28/2023, 07/0 10/2021, 10/18/2020, Additional history exists COVID-19 Vaccine ( season) 2025 10/08/2021, 02/02/2021, 01/05/2021 Disability Screening 01/31/2026 01/31/2025 SDOH Screening 01/31/2026 01/31/2025 Alcohol/Substance Use Screening 09/27/2026 09/27/2025 Depression Screening 09/27/2026 09/27/2025, 09/27/20 25 Tobacco Screening 09/27/2026 09/27/2025 Cervical Cancer Screening 04/17/2027 HPV/Cotest 04/17/2027 04/17/2022, 03/20, 12/09/2019, Additional history exists Pap Smear 04/17/2027 04/17/2022, 04/05/2021 DTaP/Tdap/Td Vaccines (2 - Td or Tdap) 07/31/2028 07/31/2018, 02/21/2018 Colonoscopy 12/01/2028 12/01/2018 Colorectal Cancer Screening 12/01/2028 Lipid Panel 12/26/2028 12/27/2023, 01/18, 09/18/2021, Additional history exists HIV Screening Completed 04/05/2021 Hepatitis C Screening Completed 04/05/2021 Influenza Vaccine Completed 09/27/2025, , 07/19/2020, Additional history exists HIB Vaccines Aged Out No longer eligi ble based on patient's age to complete this topic HPV Vaccines Aged Out No longer eligi ble based on patient's age to complete this topic IPV Vaccines Aged Out No longer eligi ble based on patient's age to complete this topic Meningococcal B Vaccine Aged Out No l onger eligible based on patient's age to complete [...] Procedure Name Priority Date/Time Associated Diagnosis Comments LIPID PANEL, STANDARD Routine 12/27/2023 9:50 AM [...] Recently Relevant to Health Maintenance Results * (ABNORMAL) Lipid Panel, Standard (12/27/2023 9:50 AM EST) Triglycerides 191(H) <150 mg/dL [facility] Comment:Desirable Triglyceri de: less than 150 mg/dLBorderline High Triglyceride 150-199 mg/dLHigh Triglyceride: 200-499 mg/dLVery High Triglyceride: greater than or equal to 5OO mg/dL Cholesterol 253(H) <200 mg/dL [facility] Comment:Desirable Cholestero l: less than 200 mg/dLBorderline High Cholesterol: 200-239 mg/dLHigh Cholesterol: greater than 239 mg/dL LDL Cholesterol Calculated 183(H) <100 mg/dL [facility] Comment:Desirable LDL: less than 100 mg/dLNear Optimal/Above Optimal LDL: 110- 129 mg/dLBorderline High LDL: 130-159 mg/dLHigh LDL: 160-189 mg/dLVery High LDL: greater than or equal to 190 mg/dL HDL Cholesterol 32(L) >40 mg/dL [facility] Comment:Desirable HDL: great er than 40 mg/dL Note: This HDL assay may give artificially low results in patients with liver disease. Blood Venous blood specimen / Unknown 12/27/2023 9:50 AM EST 12/27/2023 9:52 AM EST us Juan Miguel Burr MD LAB BLOOD ORDERABLES Final Resul t [facility] [address] [place] [phone] * BI Mammogram Screen w/ Jesu w/ Implants Camilo (04/28/2023 3:30 PM EDT) Anatomical Region Laterality Modality Mammography 04/28/2023 3:30 PM EDT Narrative 05/17/2023 7:45 PM EDT [address] [place] [address] Mammography Report Signed Patient: Lory Denise MR#: [id number] : 1965 Acct:[id number] Age/Sex: 57 / F ADM Date: 04/28/23 Loc: HO.MAMMDorothea Attending Dr: Juan Miguel Burr MD Ordering Physician: Juan Miguel Burr MD Results: Date of Service: 04/28/23 Follow Up: Procedure(s): MM tomosynthesis screen imp BI Accession Number(s): [id number] cc: Juan Miguel Burr MD EXAMINATION: MM [...] in OV> 05/17/23 1942 DD/ 1530 TD/TT: Guyline Operator: Procedure Note Donotuseinterpreter, Image - 05/17/2023 [facility] [address] [place] [address] Mammography Report Signed Patient: Migue Denise#: [id number] : 1965Acct:[id number] Age/Sex: 57 / FADM Date: 04/28/23 Loc: AZEEM Attending Dr: Juan Miguel Burr MD Ordering Physician: Juan Miguel Burresults: Date of Service: 04/28/23Follow Up: Procedure(s): MM tomosynthesis screen imp BI Accession Number(s): [id number] cc: Juan Miguel Burr MD EXAMINATION: MM [...] signed by Noris Orellana MD in OV> 05/17/231941 DD/ 1530 TD/TT: Guyline Operator: [facility] Name IMG BI PROCEDURES Final Result * THINPREP TIS PAP AND HPV mRNA E6/E7 WITH REFLEX TO HPV 16,18/45 (04/17/2022 4:30 PM EDT) Clinical Information: None given [facility] COMMENT SEE COMMENT [facility] Comment: EXPLANATORY NOTE: The Pap is a screening test for cervical cancer. It is not a diagnostic test and is subject to false negative and false positive results. It is most reliable when a satisfactory sample, regularly obtained, is submitted with relevant clinical findings and history, and when the Pap result is evaluated along with historic and current clinical information. Comment: This Pap test has been evaluated with computer assisted technology. [facility] Cytotechnologis t: SEE COMMENT [facility] Comment: DMM, CT(ASCP) CT screening location: [place] [address] HPV nRNA E6/E7 Not Detected Not Detected [facility] Comment: Methodology: Ticket Clerk-Mediated Amplification This assay detects E6/E7 viral messenger RNA (mRNA) from 14 high-risk HPV types (16,18,31,33,35,39,45,51,52,56,58,59,66,68). Cervical sources are required for HPV testing. If a vaginal source from a patient who has had a total hysterectomy with removal of cervix was submitted, please contact the testing laboratory for alternative testing options. For additional information, please refer to http://IDbyME.OpenAgent.com.au/faq/EIU696t8 (This link if provided for information/ educational [...] not provided 04/17/2022 4:30 PM EDT Manisha PAYAN LAB PATHOLOGY ORDERABLES Final Result Performing Organization Address [facility] de Phone Number [facility] [address] [place] [address], * HEPATITIS C AB W/REFL TO HCV RNA, QN, PCR (04/05/2021 10:36 AM EDT) HEPATITIS C ANTIBODY NON-REACT [facility] NON-REACT [facility] INDEX 0.01 <1.00 [facility] Comment: HCV antibody was non-reactive. There is no laboratory evidence of HCV infection. In most cases, no further action is required. However, if recent HCV exposure is suspected, a test for HCV RNA (test code 74785) is suggested. For additional information please refer to http://IDbyME.OpenAgent.com.au/faq/XWX27n3 (This link is being provided for informational/ educational purposes only.) 04/05/2021 10:3 6 AM EDT Manisha Keen CNM HISTORICAL/NON ORDERABLE LABS Final Result Performing Organization Address [facility] Co de Phone Number [facility] [address] [place] [address], * HIV 1/2 ANTIGEN/ANTIBODY,FOURTH GENERATION W/RFL (04/05/2021 10:36 AM EDT) HIV-1/2 ANTIGEN AND ANTIBODIES, 4TH GENERATION W/ REFLEX NON-REACT CHRISTEL NON-REACT CH[facility]STEL [facility] Comment: HIV-1 antigen and HIV-1/HIV-2 antibodies were not detected. There is no laboratory evidence of HIV infection. PLEASE NOTE: This information has been disclosed to you from records whose confidentiality may be protected by state law. If your state requires such protection, then the state law prohibits you from making any further disclosure of the information without the specific written consent of the person to whom it pertains, or as otherwise permitted by law. A general authorization for the release of medical or other information is NOT sufficient for this purpose. For additional information please refer to http://education.OpenAgent.com.au/faq/XXE941 (This link is being provided for informational/ educational purposes only.) The performance of this assay has not been clinically validated in patients less than 2 years old. 04/05/2021 10:3 6 AM EDT Manisha PAYAN LAB BLOOD ORDERABLES Felicitas l Result [facility] [address] * Colonoscopy (12/01/2018) Colonoscopy Normal Normal 12/01/2018 Jennifer Nino - 12/01/2018 10:28 AM EST Recommended 10 year follow up ( [facility] ) Historical Provider HEALTH MAINTENANCE Final Result from Last 3 Months or Most Recently Relevant to Health Maintenance Insurance (Home) (Work) [address] [address] [facility] [address] [place] [address] Care Teams Product Trainer Relationship Specialty Start Date End Date Name, MD Juan Miguel [address] [place] [address] PCP - General Family Medicine 07/14/17
--- OUTSIDE RECORDS SUMMARY | 2025-10-10 07:59 | XMS_ITS | Encounter Summary ---
Author Organization [employer] Address [address] [place] [address] [address] [place] [address] Care Team Providers Care Associate Name Role Phone Name, Juan Miguel JUAREZ Primary Care Provider [phone] Encounter Details Date Type Department Care Team (Late st Contact Info) Description 03/03/2023 Abstract [facility] [address] [place] [phone] Juan Miguel Burr MD [address] [place] [phone] Social History Tobacco Use Types Packs/Day Years [...] Info) Description 10/17/2025 3:30 PM EST Immunization [facility] [address] [place] [address] [phone] 01/02/2026 3:30 PM EDT Office Visit [address] [phone] Juan Miguel Burr MD [address] [place] [phone] documented as of this encounter Procedures Procedure Name Priority Date/Time Associated Diagnosis Comments COLONOSCOPY Routine 12/01/2018 documented in this encounter Results * Hm Colonoscopy (12/01/2018) Colonoscopy Normal Normal 12/01/2018 Светлана Jennifer Alfaro - 12/01/2018 10:28 AM EST Recommended 10 year follow up ( [facility] ) us Historical Provider HEALTH MAINTENANCE Final Result documented in this encounter Visit Diagnoses Not on filedocumented in this encounter Care Teams Associate Relationship Specialty Start Date End Date Name, MD Juan Miguel [address] [place] [address] PCP - General Family Medicine 07/14/17 documented as of this encounter
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
[2025-10-10 08:07] LABS: MANUAL DIFF FLAG NO
[2025-10-10 08:40] LABS: Hematocrit 40.7 % (37.0-47.0); Hemoglobin 13.4 g/dl (12.0-16.0); Imm Gran Abs Auto 0.06 X10*3/uL (0.00-0.03); Imm Gran Pct Auto 1.0 % (0.0-0.4); Lymphocytes Absolute Auto 2.4 X10*3/uL (1.2-4.9); Mean Corpuscular HGB Conc 32.9 g/dl (31.0-35.0); Mean Corpuscular Hemoglobin 29.7 pg (27.0-33.0); Mean Corpuscular Volume 90.2 fL (80.0-98.0); NRBC Abs Auto 0.000 X10*3/uL (0.0-0.012); NRBC Pct Auto 0.0 /100WBC (0.0-0.2); Platelet Count 245 X10*3/uL (160-400); Red Blood Count 4.51 X10*6/uL (4.20-5.50); White Blood Count 5.9 X10*3/uL (4.8-10.8)
[2025-10-10 09:20] LABS: Alanine Aminotransferase 29 U/L (0-31); Albumin Level 4.6 g/dL (3.5-5.0); Alkaline Phosphatase 102 U/L (39-117); Anion Gap 9 (12-20); Aspartate Amino Transferase 31 U/L (5-31); Blood Urea Nitrogen 14 mg/dL (9-16); Calcium 9.6 mg/dL (8.4-10.2); Carbon Dioxide 28 mmol/L (22-29); Chloride 109 mmol/L (96-108); Cholesterol 220 mg/dL (<200); Estimated Glomerular Filt Rate > 60; HDL Cholesterol 31 mg/dL (>40); Potassium 4.0 mmol/L (3.3-5.1); Sodium 142 mmol/L (135-145); Total Protein 7.4 g/dL (6.5-8.0); Triglycerides 271 mg/dL (<150)
== END 2025-10-10 07:56 | disposition home or self-care (01) ==
LOC: HO.LAB 07:55
PROVIDERS: PCP Internal Medicine Geriatric Medicine; Visit Provider Internal Medicine Geriatric Medicine
DX: Z13.1 Encounter for screening for diabetes mellitus (principal); Z13.220 Encounter for screening for lipoid disorders; K21.9 Gastro-esophageal reflux disease without esophagitis; K76.0 Fatty (change of) liver, not elsewhere classified
CPT/HCPCS: 36415; 80053; 80061; 83036; 85025